=== PATIENT | male | born 1950 | race Caucasian/White ===

== ENCOUNTER → 2024-03-09 12:34 | Outpatient (CLI) | payer MEDICARE, OTHER, SELFPAY ==
[2024-03-09 14:43] LABS: Influenza A - CEPHEID Flu A POSITIVE (NEGATIVE); Influenza B - CEPHEID Flu B NEGATIVE (NEGATIVE); Respiratory Syncytial Virus Negative (Negative)
[2024-03-09 14:47] LABS: COVID-19 CEPHEID 4-PLEX PCR Negative (Negative)
== END ==
PROVIDERS: Visit Provider Registered Nurse
DX: R05.1 Acute cough (principal)
CPT/HCPCS: 0241U

== ENCOUNTER 2024-10-10 08:06 | Day surgery (SDC) | payer MEDICARE, OTHER, SELFPAY ==
[2024-10-10 09:10] VITALS: BP 130/82; PULSE 54; RESP 17; TEMP 36.2; O2SAT 99
--- NOTE | 2024-10-10 09:20 | PM.HP.IH.1 ---
History of Present Illness History of Present Illness Date Patient Seen: 10/10/24 Chief complaint: SDC Narrative: Follow-up colonoscopy. Date of previous colonoscopy unknown asymptomatic [facility] Medical History (Updated 07/23/24 @ 14:59 by Chandana Flores DO) History of atrial fibrillation CTS (carpal tunnel syndrome) Hypertension Hyperlipidemia Surgical History (Updated 07/23/24 @ 14:58 by Chandana Flores DO) History of repair of right rotator cuff History of coronary artery bypass graft x 2 Social History Smoking Status: Never smoker Meds Home Medications and Allergies Home Medications ?Medication ?Instructions ?Recorded ?Confirmed ?Type amlodipine 5 mg tablet 5 mg PO DAILY 03/09/24 10/10/24 History ezetimibe 10 mg tablet 10 mg PO DAILY 03/09/24 10/10/24 History icosapent ethyl 1 gram capsule 2 g PO BID 03/09/24 10/10/24 History (Vascepa) metoprolol succinate 25 mg 25 mg PO DAILY 03/09/24 10/10/24 History tablet,extended release 24 hr atorvastatin 80 mg tablet 80 mg PO DAILY #90 tabs 07/23/24 10/10/24 Rx Allergies Allergy/AdvReac Type Severity Reaction Status Date / Time No Known Drug Allergies Allergy Verified 10/10/24 09:07 Exam Vital Signs (past 8 hours): - 10/10/24 09:10 Temperature 97.1 F L Pulse Rate 54 L Respiratory Rate 17 Blood Pressure 130/82 Pulse Oximetry 99 Oxygen Delivery Method Room Air Oxygen Delivery Method Room Air Narrative Exam Narrative: Oropharynx free of lesions Chest clear to auscultation percussion Cardiac exam reveals no S3 or murmur Assessment & Plan Assessment & Plan narrative: Need for colorectal cancer screening. Possible history of polyps. Risks, benefits, alternatives have been explained. Time-Based Coding :: [TOTAL MINUTES] spent with patient and on the chart (including review of chart, obtaining history, exam, reviewing outside data, placing orders, documenting exam and treatment plan, and counseling patient) on [DATE]. [employer] Director Of Diversity And Inclusion Document charge(s): No
--- NOTE | 2024-10-10 09:23 | PM.OP.COLON ---
Operative Date/Time/Diagnoses Date of procedure: 10/10/24 Time of procedure: 10:08 Pre-op diagnosis: See indication and findings Post-op diagnosis: same Procedure & Clinicians Study performed: Colonoscopy Same procedure(s) as scheduled: Yes Indications: Screening Surgeon: Clarissa Stevenson Anesthesia Type: Other Procedure Notes Procedure in detail: After informed consent was obtained the patient was placed in left lateral decubitus position. The video colonoscope was introduced the rectum slowly advanced cecum. Preparation was good. On slow withdrawal mucosa was carefully examined. The scope was removed. The patient tolerated the procedure well. Blood loss none Complications none Sedation mac Findings 1. Scattered small diverticula in left colon 2. Otherwise negative colonoscopy to cecum Patient should follow-up colonoscopy in 5-10 years
[2024-10-10] MEDS: LACTATED RINGERS 1,000 ML 42 ML IV (09:31)
[2024-10-10 10:09] VITALS: BP 125/57; PULSE 43; RESP 15; TEMP 36.2; O2SAT 97
[2024-10-10 10:13] VITALS: BP 122/58; PULSE 42; RESP 14; O2SAT 98
[2024-10-10 10:15] VITALS: BP 131/60; PULSE 45; RESP 22; O2SAT 97
[2024-10-10 10:21] VITALS: BP 133/63; PULSE 43; RESP 25; O2SAT 98
== END 2024-10-10 10:36 | disposition home or self-care (01) ==
PROVIDERS: PCP Family Medicine; Referring Provider Internal Medicine Gastroenterology; Visit Provider Internal Medicine Gastroenterology
PROC: 0DJD8ZZ Inspection of Lower Intestinal Tract, Via Natural or Artificial Opening Endoscopic (ICD-10-PCS; CPT 45378; principal; 2024-10-10 09:30)
DX: Z12.11 Encounter for screening for malignant neoplasm of colon (principal); K57.30 Diverticulosis of large intestine without perforation or abscess without bleeding
CPT/HCPCS: G0121; J2704